=== PATIENT | female | born 1975 | race Asian ===

== ENCOUNTER → 2024-06-11 | Day surgery (SDC) | payer BC | END | disposition home or self-care (01) | LOC: US 08:40 | PROVIDERS: ATTEND Internal Medicine Endocrinology, Diabetes & Metabolism | DX: E04.2 Nontoxic multinodular goiter (principal) | CPT/HCPCS: 76536 ==

== ENCOUNTER → 2024-06-22 | Day surgery (SDC) | payer BC ==
[~2024-06-22] MED LIST: LIDOCAINE HCL 1% 10 MG/ML 10ML VIAL ONE; SODIUM BICARBONATE 4% 2.4MEQ/5ML VIAL IV ONE
== END | disposition home or self-care (01) ==
LOC: RAD 08:55
PROVIDERS: ATTEND Internal Medicine Endocrinology, Diabetes & Metabolism
DX: E04.2 Nontoxic multinodular goiter (principal); Z79.899 Other long term (current) drug therapy
CPT/HCPCS: 10005; 10006; 88305; J2003; J3490

== ENCOUNTER → 2024-07-28 | Day surgery (SDC) | payer BC | END | disposition home or self-care (01) | LOC: RAD 09:51 | PROVIDERS: ATTEND Internal Medicine Endocrinology, Diabetes & Metabolism | DX: E04.2 Nontoxic multinodular goiter (principal); Z79.899 Other long term (current) drug therapy | CPT/HCPCS: 10005; 10006; 88172; 88173; J2003; J3490 ==